=== PATIENT | female | born 1965 | race Caucasian/White ===

== ENCOUNTER 2023-05-15 08:05 | Outpatient (OUT) | payer OTHER, SELFPAY ==
[2023-05-15 08:26] LABS: Basophils Percent Auto 0.4 % (0.2-2.0); Eosinophils Absolute Auto 0.2 10^3/uL (0.0-0.7); Eosinophils Percent Auto 2.2 % (0.9-7.0); Hematocrit 40.5 % (36.0-48.0); Hemoglobin 13.7 g/dL (12.0-16.0); Immature Granulocytes Abs Auto 0.01 10^3/uL (0.00-0.03); Immature Granulocytes Pct Auto 0.1 % (0.0-0.5); Lymphocytes Absolute Auto 2.1 10^3/uL (1.2-3.8); Lymphocytes Percent Auto 29.4 % (20.5-60.0); Mean Corpuscular HGB Conc 33.8 g/dL (29.9-35.2); Mean Corpuscular Hemoglobin 32.3 pg (26.7-34.0); Mean Corpuscular Volume 95.5 fL (81.0-99.0); Mean Platelet Volume 12.1 fL (9.5-13.5); Monocytes Absolute Auto 0.5 10^3/uL (0.3-0.8); Monocytes Percent Auto 6.7 % (1.7-12.0); Neutrophils Absolute Auto 4.4 10^3/uL (1.4-6.5); Neutrophils Percent Auto 61.2 % (43.0-75.0); Platelet Count 204 10^3/uL (150-450); Red Blood Count 4.24 10^6/uL (4.20-5.40); White Blood Count 7.2 10^3/uL (4.0-11.0)
[2023-05-15 09:21] LABS: Alanine Aminotransferase 21 U/L (14-59); Albumin Globulin Ratio 0.9; Albumin Level 3.4 g/dL (3.4-5.0); Alkaline Phosphatase 64 U/L (46-116); Anion Gap 9.9; Aspartate Amino Transferase 15 U/L (15-37); BUN Creatinine Ratio 19.2; Bilirubin Total 0.4 mg/dL (0.2-1.0); Calcium 9.3 mg/dL (8.5-10.1); Chloride 103 mmol/L (98-107); Estimated GFR (African America >60 (>=60); Estimated GFR (Non-African Ame >60 (>=60); Free T3 2.58 pg/mL (2.18-3.98); Globulin 3.8 g/dL; Glucose 87 mg/dL (74-106); Potassium 3.9 mmol/L (3.5-5.1); Sodium 139 mmol/L (136-145); Thyroid Stimulating Hormone 1.308 uIU/mL (0.358-3.740); Total Protein 7.2 g/dL (6.4-8.2)
[2023-05-15 09:30] LABS: Free T4 0.81 ng/dL (0.76-1.46)
[2023-05-16 04:07] LABS: Estradiol 93.9 pg/mL (.); FSH 7.8 mIU/mL (.)
[2023-05-20 15:07] LABS: Free Testosterone(Direct) 3.8 pg/mL (0.0-4.2); Testosterone 279 ng/dL (4-50)
== END 2023-05-15 08:06 | disposition home or self-care (01) ==
LOC: LAB 08:05
PROVIDERS: PCP Internal Medicine
DX: Z79.890 Hormone replacement therapy (principal); N95.1 Menopausal and female climacteric states; E06.9 Thyroiditis, unspecified; E55.9 Vitamin D deficiency, unspecified
CPT/HCPCS: 80053; 82306; 82670; 83001; 84402; 84403; 84439; 84443; 84481; 85025

== ENCOUNTER 2023-07-19 09:27 | Outpatient (OUT) | payer OTHER, SELFPAY ==
--- NOTE | 2023-07-19 09:34 | MM_ITS ---
Patient Name: MELIA GARCIA MR#: [id number] : 1965 Exam Date: 07/19/2023 Ordering Doctor: DR. FELICITA MORALES D.O. RADIOLOGY REPORT PROCEDURE: MM TOMOSYNTHESIS SCREENING BI COMPARISON: MG MAMM SCREEN 3D SAMSON CAD, 05/10/2021. MG MAMM SCREEN 3D SAMSON CAD, 05/12/2022. INDICATIONS: Screening Calculator Name NCI Breast Cancer Risk Assessment Tool 5 Year Breast Cancer Risk 1.50% Lifetime Breast Cancer Risk 7.40% Personal Breast Cancer No Personal Ovarian Cancer No Treatments None Family Cancers Brother with prostate cancer at age 50; Mother with lung cancer at age 72; Brother with lung cancer at age 52. LOCATION: [facility] BREAST COMPOSITION: Heterogeneously dense,which may obscure small masses. FINDINGS: DIAGNOSTIC CATEGORY 2--BENIGN FINDING. NO CHANGE FROM COMPARISON. Scattered benign-appearing nodules are present. Scattered benign-appearing calcifications are present. Scattered benign-appearing lymph nodes are present. RIGHT BREAST: No significant suspicious finding. LEFT BREAST: No significant suspicious finding. RECOMMENDATIONS: ROUTINE MAMMOGRAM AND CLINICAL EVALUATION IN 12 MONTHS. PLEASE NOTE: A NORMAL MAMMOGRAM DOES NOT EXCLUDE THE POSSIBILITY OF BREAST CANCER. A CLINICALLY SUSPICIOUS PALPABLE LUMP SHOULD BE BIOPSIED. Dictated by: Hi Mckenna MD on 07/20/2023 at 08:13 Approved by: Hi Mckenna MD on 07/20/2023 at 08:15
== END 2023-07-19 09:28 | disposition home or self-care (01) ==
LOC: MAMMO 09:27
DX: Z12.31 Encounter for screening mammogram for malignant neoplasm of breast (principal); Z80.42 Family history of malignant neoplasm of prostate; Z80.1 Family history of malignant neoplasm of trachea, bronchus and lung
CPT/HCPCS: 77063; 77067

== ENCOUNTER 2024-07-28 10:16 | Outpatient (OUT) | payer OTHER, SELFPAY ==
--- NOTE | 2024-07-28 10:19 | MM_ITS ---
Patient Name: MELIA GARCIA MR#: [id number] : 1965 Exam Date: 07/28/2024 Ordering Doctor: DR. FELICITA MORALES D.O. RADIOLOGY REPORT PROCEDURE: MM TOMOSYNTHESIS SCREENING BI COMPARISON: MM TOMOSYNTHESIS SCREENING BI, 07/19/2023. MG MAMM SCREEN 3D SAMSON CAD, 05/12/2022. INDICATIONS: Screening Calculator Name NCI Breast Cancer Risk Assessment Tool 5 Year Breast Cancer Risk 1.50% Lifetime Breast Cancer Risk 7.20% Personal Breast Cancer No Personal Ovarian Cancer No Treatments None Family Cancers Brother with prostate cancer at age 50; Mother with lung cancer at age 72; Brother with lung cancer at age 52. LOCATION: [facility] BREAST COMPOSITION: The breasts are heterogeneously dense,which may obscure small masses. FINDINGS: DIAGNOSTIC CATEGORY 2--BENIGN FINDING. NO CHANGE FROM COMPARISON. Scattered benign-appearing nodules are present. Scattered benign-appearing calcifications are present. Scattered benign-appearing lymph nodes are present. RIGHT BREAST: No significant suspicious finding. LEFT BREAST: No significant suspicious finding. RECOMMENDATIONS: ROUTINE MAMMOGRAM AND CLINICAL EVALUATION IN 12 MONTHS. PLEASE NOTE: A NORMAL MAMMOGRAM DOES NOT EXCLUDE THE POSSIBILITY OF BREAST CANCER. A CLINICALLY SUSPICIOUS PALPABLE LUMP SHOULD BE BIOPSIED. Dictated by: Hi Mckenna MD on 07/28/2024 at 14:13 Approved by: Hi Mckenna MD on 07/28/2024 at 14:14
== END 2024-07-28 10:17 | disposition home or self-care (01) ==
LOC: MAMMO 10:16
DX: Z12.31 Encounter for screening mammogram for malignant neoplasm of breast (principal); Z80.1 Family history of malignant neoplasm of trachea, bronchus and lung; Z80.42 Family history of malignant neoplasm of prostate
CPT/HCPCS: 77063; 77067

== ENCOUNTER 2025-08-03 21:58 | Outpatient (REF) | payer OTHER, SELFPAY ==
--- OUTSIDE RECORDS SUMMARY | 2025-08-03 10:00 | XMS_ITS | Encounter Summary ---
Author Organization [facility] Address [address] [place] [address] Care Team Providers Care Sponge Maker Name Role Phone Unavailable Primary Care Provider Unavailabl e Reason for Visit * ReasonCommentsGynecologic Exam Encounter Details DateTypeDepartmentCare Team (Latest Contact Info)Odbstfllzjk21/29/2025 10:00 AM ESTProcedure Visit [facility] [place] [facility] [address] [place] [address] Teri Bradley, CHRISTINA [address] [place] [address] Well woman exam with routine gynecological exam; Breast cancer screening by mammogram; Osteoporosis, post-menopausal; Encounter for osteoporosis screening in asymptomatic postmenopausal patient; H/O: hysterectomy Social History Tobacco UseTypesPacks/DayYears UsedDateSmoking Tobacco: Never Assessed CommentsNoSex and Gender InformationValueDate RecordedSex Assigned at BirthNot on fileLegal HxvSnawvp55/15/2023 6:40 PM EDTGender MazxjimqNzojmr11/15/2023 6:40 PM EDTSexual OrientationNot on filedocumented as of this encounter Last Filed Vital Signs Vital SignReadingTime TakenCommentsBlood Cydckndx688/7408/03/2025 10:30 AM EST Pulse--Temperature--Respiratory Rate--Oxygen Saturation--Inhaled Oxygen Concentration--Pgygrr13.1 kg (159 lb)08/03/2025 10:30 AM ESTHeight--Body Mass Index30.04011/28/2018 12:00 PM EDTdocumented in this encounter Progress Notes * Teri Bradley NP - 08/03/2025 10:00 AM EST Reason for Appointment: Patient ID: Norma Main is a 60 y.o. female who presents for Gynecologic Exam Patient presents today for Annual Exam. MEDICATIONS No current outpatient medications ALLERGIES Allergies Allergen Reactions Nitrofurantoin Fever, Hives and Itching Other Reaction(s): Hives Nitrofurantoin Macrocrystal Other Reaction(s): Hives Penicillins Itching Other Reaction(s): Hives Sulfa Antibiotics Itching and Rash Other Reaction(s): Hives PROBLEMS Active Ambulatory Problems Diagnosis Date Noted No Active Ambulatory Problems Resolved Ambulatory Problems Diagnosis Date Noted No Resolved Ambulatory Problems No Additional Past Medical History HISTORY PAST MEDICAL HISTORY SOCIAL HISTORY No past medical history on file. Social History Tobacco Use Smoking status: Not on file Smokeless tobacco: Not on file Substance Use Topics Alcohol use: Not on file Drug use: Not on file FAMILY HISTORY No family history on file. SURGICAL HISTORY History reviewed. No pertinent surgical history. REVIEW OF SYSTEMS Review of Systems: Review of Systems Constitutional: Negative. HENT: Negative. Eyes: Negative. Respiratory: Negative. Cardiovascular: Negative. Gastrointestinal: Negative. Genitourinary: Negative. Musculoskeletal: Negative. Skin: Negative. Neurological: Negative. All other systems reviewed and are negative. Hematological: Negative. Endocrine: Negative. Allergic/Immunologic: Negative. OBJECTIVE Objective: Physical Exam Constitutional: Appearance: Normal appearance. She is well-developed. Genitourinary: Vulva normal. Breasts: Breasts are soft. Right: Normal. Left: Normal. Cardiovascular: Rate and Rhythm: Normal rate and regular rhythm. Pulmonary: Effort: Pulmonary effort is normal. Breath sounds: Normal breath sounds. Abdominal: General: Bowel sounds are normal. There is no distension. Palpations: Abdomen is soft. Tenderness: There is no abdominal tenderness. There is no guarding or rebound. Musculoskeletal: General: No swelling. Normal range of motion. Right lower leg: No edema. Left lower leg: No edema. Neurological: Mental Status: She is alert and oriented to person, place, and time. Skin: General: Skin is warm and dry. Psychiatric: Mood and Affect: Mood normal. Behavior: Behavior normal. Vitals and nursing note reviewed. Exam conducted with a basket braider present. Vitals: Estimated body mass index is 26.07 kg/m?? as calculated from the following: Height as of 11/28/18: 5' 1 . Weight as of 11/28/18: 138 lb. BP: No LMP recorded. Assessment/Plan ICD-10-CM 1. Well woman exam with routine gynecological exam Z01.419 Assessment/Plan Annual: Patient presents today for an annual exam. Patient states she is doing well and has no complaints. Pap was obtained without difficulty and patient given mammogram order to have scheduled/obtained. No orders of the defined types were placed in this encounter. Patient is to return in one year for annual unless needed otherwise. Documented by Kristine Hopper MA on behalf of: Teri Bradley NP documented in this encounter Plan of Treatment DateTypeDepartmentCare Team (Latest Contact Info)Oigefdjvqif55/30/2026 9:00 AM ESTProcedure Visit [facility] [address] [place] [address] Teri Bradley NP [address] [place] [address] NameTypePriorityAssociated DiagnosesOrder ScheduleBilateral screening mammogram ImagingRoutine Breast cancer screening by mammogram Expected: 08/03/2025 (Approximate), Expires: 10/03/2026DEXA bone densityImaging Routine Osteoporosis, post-menopausal Encounter for osteoporosis screening in asymptomatic postmenopausal patient Expected: 08/03/2025 (Approximate), Expires: 08/03/2026THIN PREP TIS PAP AND HR HPV DNAPathology and CytologyRoutine Well woman exam with routine gynecological exam Ordered: 08/03/2025documented as of this encounter Visit Diagnoses Diagnosis Well woman exam with routine gynecological exam Routine gynecological examination Breast cancer screening by mammogram Osteoporosis, post-menopausal Senile osteoporosis Encounter for osteoporosis screening in asymptomatic postmenopausal patient H/O: hysterectomy Acquired absence of both cervix and uterus documented in this encounter
--- OUTSIDE RECORDS SUMMARY | 2025-08-03 22:02 | XMS_ITS | CCD ---
Author Organization [facility] Care Team Providers Care Field Aide Name Role Phone FELICITA MORALES Admitting Unavailable FELICITA MORALES Attending Unavailable DR ADALBERTO HAIDER Primary Care Unavailable WEST, DR MANISHA Carranza Consulting Unavailable FELICITA MORALES Consulting Unavailable ALVARO BHAT Admitting Unavailable ALVARO BHAT Attending Unavailable DR ADALBERTO HAIDER Primary Care Unavailable ALVARO BHAT Consulting Unavailable Adalberto Haider DO Primary Care Provider INOCENTE MEDRANO Referring Unavailable ADALBERTO HAIDER Primary Care Unavailable Allergies Allergy ClassificationReported Allergen(s)Allergy TypeDate of OnsetReaction(s) Facility (1 source)NitrofurantoinDrug Xojbbwn36-87-0679[facility] ([facility] source)PenicillinsDrug allergy (disorder)02-24-2733[facility] (1 source)Sulfonamides (Antibiotic)Drug allergy (disorder)31-32-4125Igm[facility] (1 source)NitrofurantoinDrug Hkbvhgf09-74-9821VuhlbPxbIn[facility] (1 source)PenicillinsPropensity to adverse reactions to relb75-00-8136[facility] (1 source)SulfacetamideDrug Qczhayo45-54-1944Lqi [facility] Medications Current Medications MedicationDrug Class(es)DatesSig (Normalized)Sig (Original)calcium carbonate 500 mg oral tablet (1 source)take 1 tablet by mouth once dailycalcium carbonate (OSCAL) 500 MG TABS tablet Take 1 tablet by mouth daily Activecetirizine hydrochloride 10 mg oral tablet (1 source)Histamine-1 Receptor Antagonisttake 1 tablet by mouth once daily cetirizine (ZYRTEC) 10 MG tablet Take 1 tablet by mouth daily ActiveMultiple Vitamin (MULTIVITAMIN) TABS tablet (1 source)take 1 tablet by mouth once dailyMultiple Vitamin (MULTIVITAMIN) TABS tablet Take 1 tablet by mouth daily Activeomeprazole 20 mg delayed release oral capsule (1 source)Proton Pump Inhibitortake 1 capsule by mouth once dailyomeprazole (PRILOSEC) 20 MG delayed release capsule Take 1 capsule by mouth daily Active turmeric extract 500 mg oral capsule (1 source)take 1 capsule by mouth once dailyturmeric 500 MG CAPS Take by mouth daily Active Problems Active Problems Problem ClassificationProblemDateDocumented DateEpisodic/ChronicOther female genital disorders (1 source)History of dysplasia of cervix; Translations: [Personal history of cervical dysplasia]Onset: 399209-03-5123IdalgcojFlzfv screening for suspected conditions (not mental disorders or infectious disease) (4 sources)Encounter for screening mammogram for malignant neoplasm of breast; Translations: [ENC SCR MAMMO MALIG NEOPLASM BREAST]Onset: 91-43-0916Pvpqyzqg Residual codes; unclassified (1 source)Family history of malignant neoplasm of trachea, bronchus and lung; Translations: [FAM HX MALIG NEOPLSM TRACH BRON LNG]Onset: 66-35-5908Jwhkhxxo Residual codes; unclassified (1 source)Family history of malignant neoplasm of prostate; Translations: [FAMILY HX MALIG NEOPLASM PROSTATE]Onset: 22-21-8869Hfnldqoy Past or Other Problems Problem ClassificationProblemDateDocumented DateEpisodic/ChronicImmunizations and screening for infectious disease (4 sources)Encounter for immunization; Translations: [ENCOUNTER FOR IMMUNIZATION]Onset: 90-97-1237Nczahmyb Results Test NameValueInterpretationReference RangeFacilityHPV DNA High Riskon 29-29-2224IKN InterpNMetroHealth Cleveland Heights Medical CenterComment on above: Result Comment: This test amplifies and detects DNA of 14 high-risk HPV types associated with cervical cancer and its precursor lesions (HPV types 16,18, 31, 33, 35, 39, 45, 51, 52, 56, 58, 59, 66, and 68). Sensitivity may be affected by specimen collection methods, stage of infection, and the presence of interfering substances. Results should be interpreted in conjunction with other available laboratory and clinical data. A negative high-risk HPV result does not exclude the possibility of future cytologic HSIL or underlying CIN2-3 or cancer. This test is intended for medical purposes only and is not valid for the evaluation of suspected sexual abuse or for other forensic purposes.Performed By: #### HPVH #### [facility] [address] [place] [address] Field Instructor: Taz Lang MDHPV Type 16Not detectedNormalGrand Lake Joint Township District Memorial HospitalComment on above:Performed By: #### HPVH #### [facility] [address] Field Instructor: Taz Lang MDHPV Type 18Not detectedNoOregon Hospital for the InsaneComment on above:Performed By: #### HPVH #### [facility] [address] [place] [address] Field Instructor: Avery Flowers High Risk HPVNot detectedNoOregon Hospital for the InsaneComment on above:Performed By: #### HPVH #### [facility] [address] [place] [address] Field Instructor: Taz Lang MDHPV DNA High Riskon 59-49-6068UFF Sample.THIN PREPNormalCleveland ClinicComment on above:Performed By: #### HPVH #### [address] [address] Field Instructor: Duran Flowers.VAGINAL SPECIMENNormalCleveland ClinicComment on above:Performed By: #### HPVH #### [address] [address] Field Instructor: CHRISTOPHER Flowersytology Reporton 95-13-2015Grciemvi report Cyto stain.thin prep Doc (Cvx/Vag)(NOTE) Path Number: [id number] DIAGNOSIS Imaged ThinPrep Pap - Vaginal (1 monolayer slide): Specimen Adequacy: Satisfactory for evaluation. Descriptive Diagnosis: Negative for intraepithelial lesion or malignancy. Cytotech Screener: EY Electronically Signed Out Jessica DAMON(ASCP) 08/07/2024 Procedure/Addendum HPV Procedure Report Date Ordered: 07/21/2024 Status: Signed Out Date Complete: 07/22/2024 By: System Interface Date Reported: 07/22/2024 Sample: HPV Type 16 Result: Not Detected Ref Range: Not Detected Sample: HPV Type 18 Result: Not Detected Ref Range: Not Detected Sample: Other High Risk HPV Result: Not Detected Ref Range: Not Detected Sample: HPV Interp Result: Ref Range: This test amplifies and detects DNA of 14 high-risk HPV types associated with cervical cancer and its precursor lesions (HPV types 16,18, 31, 33, 35, 39, 45, 51, 52, 56, 58, 59, 66, and 68). Sensitivity may be affected by specimen collection methods, stage of infection, and the presence of interfering substances. Results should be interpreted in conjunction with other available laboratory and clinical data. A negative high-risk HPV result does not exclude the possibility of future cytologic HSIL or underlying CIN2-3 or cancer. This test is intended for medical purposes only and is not valid for the evaluation of suspected sexual abuse or for other forensic purposes. [place] [address] . Source of Specimen: A: Imaged ThinPrep Pap - Vaginal (1 monolayer slide) HPV Reflex?......................HPV Regardless Clinical History Hysterectomy Z01.419 Routine rn gynecology exam without abnormal findings Prior abnormal pap: history of cervical dysplasia Processing Lab: [address] [address] Interpretation performed at [address] [address] This Pap Test has been evaluated with the assistance of the ThinPrep Pap Test Imaging System. The Pap smear is a screening test primarily for squamous epithelial lesions, which is subject to both false negative and false positive results. Your patient should be reminded to consult you immediately if she experiences any suspicious signs or symptoms, regardless of her Pap smear result. GYNECOLOGIC CYTOLOGY REPORT Patient Name: MELIA GACRIA [facility] Rec: [id number] [facility] ANATOMIC PATHOLOGY [address] [place] [address]. [place], [place] [address] [facility] SAMSON CADon 19-26-5806QM MAMM SCREEN 3D SAMSON CADPatient: MELIA GARCIA Exam Date: 05/12/2022 : 1965 Gender:F Ordering : DR. FELICITA MORALES D.O. Admission #: [id number] Family : Order #: [id number] CLICK HERE TO VIEW EXAM RADIOLOGY REPORT PROCEDURE: MAMMOGRAM SCREENING 3D BILATERAL CAD COMPARISON: MG MAMM SCREEN SAMSON W CAD, 03/17/2020. MG MAMM SCREEN 3D SAMSON CAD, 05/10/2021. INDICATIONS: Screening for malignant neoplasm of breast Calculator Name NCI Breast Cancer Risk Assessment Tool 5 Year Breast Cancer Risk 1.40% Lifetime Breast Cancer Risk 7.60% Personal Breast Cancer No Personal Ovarian Cancer No Treatments None Family Cancers Brother with prostate cancer at age 50; Mother with lung cancer at age 72; Brother with lung cancer at age 52. LOCATION: [facility] BREAST COMPOSITION: Heterogeneously dense,which may obscure small masses. FINDINGS: DIAGNOSTIC CATEGORY 2--BENIGN FINDING. NO CHANGE FROM COMPARISON. Scattered benign-appearing nodules are present. Scattered benign-appearing calcifications are present. Scattered benign-appearing lymph nodes are present. RIGHT BREAST: No significant suspicious finding. LEFT BREAST: No significant suspicious finding. RECOMMENDATIONS: ROUTINE MAMMOGRAM AND CLINICAL EVALUATION IN 12 MONTHS. PLEASE NOTE: A NORMAL MAMMOGRAM DOES NOT EXCLUDE THE POSSIBILITY OF BREAST CANCER. A CLINICALLY SUSPICIOUS PALPABLE LUMP SHOULD BE BIOPSIED. Dictated by: Manisha Mckenna MD on 05/12/2022 at 14:33 Approved by: Manisha Mckenna MD on 05/12/2022 at 14:36[facility] Encounters Encounter DateEncounter TypeCare ProviderFacilityStart: 07-18-2024 End: 48-98-1795okaxbcqsmiEORGHocking Valley Community Hospitaltart: 07-18-2024 End: 71-60-4951Wvzxrbdbe for gynecological examination (general) (routine) without abnormal findingsHocking Valley Community Hospitaltart: 07-18-2024 End: 29-65-6477Dbzxqejsdl hospital visit by physicianAdalberto Haider DO Work Phone: stVZ [place] LAB DOCTORStart: 05-12-2022 End: 74-12-9820jcerqyqojbFRRSIC CROAKFacility:V5Hufqk: 07-19-2021 End: 59-63-3566hmcpferfrnUKNCNU ELI ROSSFacility:H1 Plan of Treatment DateCare ActivityDetailAuthorStart: 03-90-4068Rotouotibdh Syncytial Virus (RSV) or age 60 yrs+ (1 - 1-dose 75+ series)Respiratory Syncytial Virus (RSV) or age 60 yrs+ (1 - 1-dose 75+ series)[facility] HospitalStart: 71-46-3823SGTBX-19 Vaccine ( season)COVID-19 Vaccine ( season)[facility] HospitalStart: 07-10-7101Sfwlwpmpv vaccinationFlu vaccine (#1)[facility] HospitalStart: 22-43-2227Uiilspkqv for malignant neoplasm of breastBreast cancer screenDominion HospitalStart: 63-44-5740Xreurezh vaccine (1 of 2)Shingles vaccine (1 of 2)[facility] HospitalStart: 38-69-3402Qpqyyrstu for malignant neoplasm of colonDominion Hospital Start: 52-75-8496Mkbvl panelLipidsDominion HospitalStart: 1993 Screening for malignant neoplasm of cervixBon Green Cross HospitalStart: 11-06-4914Gfntflevt for malignant neoplasm of cervixPap smearDominion HospitalStart: 32-24-4481VVcC/Tdap/Td vaccine (1 - Tdap)DTaP/Tdap/Td vaccine (1 - Tdap)[facility] HospitalStart: 44-30-9754Ccnsyvbea C screeningHepatitis C screenDominion HospitalStart: 14-28-1764JEB screeningHIV [facility] HospitalStart: 05-57-4126Qacdedvutr ScreenDepression [facility] Payers DatePayer CategoryPayerSelect Specialty Hospital - [facility] [id number] [id number] [id number] Social History DateTypeDetailFacilityStart: 42-98-0011Gzvzuhm smoking status NHISNever smoked tobaccoDominion HospitalHistory of tobacco usePassive smokerDominion HospitalStart: 98-17-6800Uvrxawf of Social functionDominion Hospital Start: 24-09-8746Xvlkxiv use panelDominion HospitalStart: 50-65-7612Lfe assigned at birthNot on [facility] Summary Purpose Family History No Family History Records FoundNo Family History Records Found Advance Directives No Advanced Directives Records FoundNo Advanced Directives Records Found Additional Source Comments INFORMATION SOURCE (unrecogn ized section and content) DATE CREATED AUTHOR 05/16/2022 [facility] DATE CREATED AUTHOR AUTHOR'S ORGANIZ ATION 08/14/2024 [facility] Care Teams (unrecognized sec tion and content) Team MemberRelationshipSpecialtyStart DateEnd Date Adalberto Haider DO [address] [place] [address] PCP - GeneralInternal Culwavks38/12/24 FOR RECORDS PERTAINING TO PATIENTS WHO ARE OR HAVE BEEN ENROLLED IN A CHEMICAL DEPENDENCY/SUBSTANCEABUSE PROGRAM, SOME INFORMATION MAY BE OMITTED. This clinical summary was aggregated from multiple sources. Caution should be exercised in using it in the provision of clinical care. This summary normalizes information from multiple sources, and as a consequence, information in this document may materially change the coding, format and clinical context of patient data. In addition, data may be omitted in some cases. CLINICAL DECISIONS SHOULD BE BASED ON THE PRIMARY CLINICAL RECORDS. [email or web address] provides no warranty or guarantee of the accuracy or completeness of information in this document.
--- OUTSIDE RECORDS SUMMARY | 2025-08-03 22:03 | XMS_ITS | Clinical Summary ---
Author Organization [facility] Address [address] [place] [address] Care Team Providers Care Materials Technician Name Role Phone Unavailable Primary Care Provider Unavailabl e Allergies Active AllergyReactionsCriticalityNoted DateCommentsNitrofurantoinFever,Hives, Tzfvqlp2407/18/2024 Other Reaction(s): Hives Nitrofurantoin Cgdezsnygtvw74/29/2025 Other Reaction(s): Hives VjhexuuxclxFeylunj99/13/2024 Other Reaction(s): Hives Sulfa AntibioticsItching,SsxaInm3107/18/2024 Other Reaction(s): Hives Medications No known medications Encounters DateTypeDepartmentCare EthpRnjqzavxbsl24/29/2025 10:00 AM ESTProcedure Visit [facility] [place] [place] [address] Teri Bradley NP Well woman exam with routine gynecological exam; Breast cancer screening by mammogram; Osteoporosis, post-menopausal; Encounter for osteoporosis screening in asymptomatic postmenopausal patient; H/O: lqxdkcagscwo67/29/2025amboo flowsheet [facility] [address] [place] [address] Teri Bradley NP 07/27/2025Travelfrom Last 3 Months Social History Tobacco UseTypesPacks/DayYears UsedDateSmoking Tobacco: Never Assessed CommentsNoSex and Gender InformationValueDate RecordedSex Assigned at BirthNot on fileLegal RneEkpauw13/15/2023 6:40 PM EDTGender ZbdfbnmjEynecm30/15/2023 6:40 PM EDTSexual OrientationNot on file Last Filed Vital Signs Vital SignReadingTime TakenCommentsBlood Giylflvl419/7408/03/2025 10:30 AM EST Pulse--Temperature--Respiratory Rate--Oxygen Saturation--Inhaled Oxygen Concentration--Cuwfly88.1 kg (159 lb)08/03/2025 10:30 AM FHRAmxzqe584.9 cm (5' 1 )11/28/2018 12:00 PM EDTBody Mass Index30.04011/28/2018 12:00 PM EDT Plan of Treatment DateTypeDepartmentCare Team (Latest Contact Info)Wyjicdunnhn64/30/2026 9:00 AM ESTProcedure Visit [facility] [address] [place] [address] Teri Bradley, CHRISTINA [address] [place] [address] Insurance
--- OUTSIDE RECORDS SUMMARY | 2025-08-03 22:03 | XMS_ITS | Encounter Summary ---
Author Organization [facility] Address [address] [place] [address] Care Team Providers Care Expressive Art Therapist Name Role Phone Unavailable Primary Care Provider Unavailabl e Encounter Details DateTypeDepartmentCare Team (Latest Contact Info)Qaccnndfulz23/29/2025amboo flowsheet [facility] [address] [place] [address] [place] [address] Teri Bradley, PORTABLE IRRIGATION OPERATOR [address] [place] [address] Social History Tobacco UseTypesPacks/DayYears UsedDateSmoking Tobacco: Never Assessed CommentsNoSex and Gender InformationValueDate RecordedSex Assigned at BirthNot on fileLegal CedFujysm13/15/2023 6:40 PM EDTGender YjnvnuvoDfwxgu49/15/2023 6:40 PM EDTSexual OrientationNot on filedocumented as of this encounter Plan of Treatment DateTypeDepartmentCare Team (Latest Contact Info)Hziujxykeph96/30/2026 9:00 AM ESTProcedure Visit [facility] [address] [place] [address] [place] [address] Teri Bradley, PORTABLE IRRIGATION OPERATOR [address] [place] [address] [place] [address] documented as of this encounter Visit Diagnoses Not on filedocumented in this encounter
--- OUTSIDE RECORDS SUMMARY | 2025-08-03 22:03 | XMS_ITS | Encounter Summary ---
Author Organization [facility] Address [address] [place] [address] Care Team Providers Care Operations Inspector Name Role Phone Unavailable Primary Care Provider Unavailabl e Encounter Details DateTypeDepartmentCare Team (Latest Contact Info)Okiccxwzzuv93/22/2025Travel Social History Tobacco UseTypesPacks/DayYears UsedDateSmoking Tobacco: Never Assessed CommentsUnknownSex and Gender InformationValueDate RecordedSex Assigned at Not on fileLegal WcxMxgcdz31/15/2023 6:40 PM EDTGender FpolaftgEojtmq78/15/2023 6:40 PM EDTSexual OrientationNot on filedocumented as of this encounter Plan of Treatment DateTypeDepartmentCare Team (Latest Contact Info)Pjcefkjmamu23/30/2026 9:00 AM ESTProcedure Visit [facility] [address] [place] [address] Teri Bradley, CHRISTINA [address] [facility] [place] [address] documented as of this encounter Visit Diagnoses Not on filedocumented in this encounter
--- OUTSIDE RECORDS SUMMARY | 2025-08-03 22:03 | XMS_ITS | Clinical Summary ---
Author Organization [facility] Address [address], [address] [place] [address] Care Team Providers Care Enrollment Processor Name Role Phone Adalberto Young DO Primary Care Provider [phone] Allergies Active AllergyReactionsCriticalityNoted DateCommentsNitrofurantoinHives 07/18/20242103Umwlijznfya44/13/2024Sulfacetamide Jlmumz6307/18/2024 Medications MedicationSigDispense QuantityRefillsLast FilledStart DateEnd DateStatus cetirizine (ZYRTEC) 10 MG tablet Take 1 tablet by mouth dailyActive Multiple Vitamin (MULTIVITAMIN) TABS tablet Take 1 tablet by mouth dailyActive calcium carbonate (OSCAL) 500 MG TABS tablet Take 1 tablet by mouth dailyActive turmeric 500 MG CAPS Take by mouth dailyActive omeprazole (PRILOSEC) 20 MG delayed release capsule Take 1 capsule by mouth dailyActive Active Problems ProblemNoted DateDiagnosed DateHistory of cervical epuytxmmc04/13/2024 Family History Medical HistoryRelationNameCommentsLung CancerBrotherHypertensionFatherLung CancerMotherRelationNameStatusCommentsBrotherFatherMother Social History Tobacco UseTypesPacks/DayYears UsedDateSmoking Tobacco: NeverPassive Smoke Exposure: Past Tobacco Cessation:Counseling Given: Not Answered CommentsNoSex and Gender InformationValueDate RecordedSex Assigned at BirthNot on fileLegal VrmIphldw53/17/2024 9:40 AM EDTGender IdentityNot on file Sexual OrientationNot on file Last Filed Vital Signs Vital SignReadingTime TakenCommentsBlood Tdubuywy207/9307/18/2024 10:11 AM EST Jkzjw683007/18/2024 10:11 AM ESTTemperature--Respiratory Rate--Oxygen Saturation 98%07/18/2024 10:11 AM ESTInhaled Oxygen Concentration--Qzyffh41.8 kg (176 lb) 07/18/2024 10:11 AM ESTHeight--Body Mass Index-- Plan of Treatment Health MaintenanceDue DateLast DoneCommentsDepression Rkwbpl7401/08/1975HIV screen 1978Hepatitis C fijcpa2501/08/1981DTaP/Tdap/Td vaccine (1 - Tdap)1982 Jyvers1701/08/20038709Hssguirvmmg90/05/2008Colorectal Cancer Mwwhab7201/09/2008FIT/FOBT: Average risk01/09/2008Fecal-DNA (Cologuard): Average risk01/09/2008 Sigmoidoscopy/CT apietvayevtc56/05/2008Pneumococcal 50+ years Vaccine (1 of 1 - PCV)2013Shingles vaccine (1 of 2)2013reast cancer yootcd9912/27/2020 12/27/2018, 12/27/2018, 12/13/2017, Additional history existsFlu vaccine (#1) 5COVID-19 Vaccine ( - season)2025Pap smear07/18/2027 07/18/2024ervical cancer deajhg2807/18/2029HPV (without or with Pap)07/18/2029 07/18/2024espiratory Syncytial Virus (RSV) or age 60 yrs+ (1 - 1-dose 75+ series)2038Hepatitis A vaccineAged OutNo longer eligible based on patient's age to complete this topicHepatitis B vaccineAged OutNo longer eligible based on patient's age to complete this topicHib vaccineAged OutNo longer eligible based on patient's age to complete this topicMeningococcal (ACWY) vaccineAged OutNo longer eligible based on patient's age to complete this topicMeningococcal B vaccineAged OutNo longer eligible based on patient's age to complete this topicPolio vaccineAged OutNo longer eligible based on patient's age to complete this topic Procedures Procedure NamePriorityDate/TimeAssociated DiagnosisCommentsHUMAN PAPILLOMAVIRUS (HPV) DNA PROBE THIN PREP HIGH HFHZVcehbjw93/13/2024 12:00 AM EST RELOCATION SERVICES SPECIALIST LADJDWBQVegexdo91/13/2024 12:00 AM EST from Last 3 Months or Most Recently Relevant to Health Maintenance Results * Human papillomavirus (HPV) DNA probe thin prep high risk (07/18/2024 12:00 AM EST)ComponentValueRef RangeTest MethodAnalysis TimePerformed AtPathologist SignatureSpecimen Description.VAGINAL RIFKQZUS41/13/2024 12:00 AM [facility] LABORATORIESHPV Sample.THIN PREP07/18/2024 12:00 AM [facility] LABORATORIESHPV, Genotype 16Not DetectedNot Egbuakio90/13/2024 12:00 AM [facility] [employer] [facility] HPV, Genotype 18Not DetectedNot Rwqwshdv64/13/2024 12:00 AM [facility] LABORATORIESHPV, High Risk OtherNot DetectedNot Kbytlrbd97/13/2024 12:00 AM [facility] EnergyMERD[facility] LABORATORIESHPV, Cqlpneohinajds55/13/2024 12:00 AM ESTMERD[facility] LABORATORIESComment: This test amplifies and detects DNA of 14 high-risk HPV types associated with cervical cancer and its precursor lesions (HPV types 16,18, 31, 33, 35, 39, 45, 51, 52, 56, 58, 59, 66, and 68). ? Sensitivity may be affected by specimen collection methods, stage of infection, and the presence of interfering substances. Results should be interpreted in conjunction with other available laboratory and clinical data. A negative high-risk HPV result does not exclude the possibility of future cytologic HSIL or underlying CIN2-3 or cancer. ? This test is intended for medical purposes only and is not valid for the evaluation of suspected sexual abuse or for other forensic purposes. Specimen (Source)Anatomical Location / LateralityCollection Method / Volume Collection TimeReceived TimeSPECIMEN FROM CERVIX OR VAGINA / Ygggjoe7507/18/2024 Narrative Authorizing ProviderResult TypeResult StatusEsther Melo PRACTICE ADMINISTRATOR - CNPHEMATOLOGY ORDERABLESFinal ResultPerforming OrganizationAddressCity/State/ZIP CodePhone Number [facility] [address] [place] [address], [facility] [phone] * RELOCATION SERVICES SPECIALIST Cytology (07/18/2024 12:00 AM EST)ComponentValueRef RangeTest Method Analysis TimePerformed AtPathologist SignatureCytology ReportPath Number: [id number] DIAGNOSIS Imaged ThinPrep Pap - Vaginal (1 monolayer slide): Specimen Adequacy: ? Satisfactory for evaluation. Descriptive Diagnosis: ? Negative for intraepithelial lesion or malignancy. ?? Cytotech Screener: ??EY Electronically Signed Out E. Young CT(ASCP) /08/07/2024 Procedure/Addendum HPV Procedure Report ? Date Ordered: ? 07/21/2024 ? Status: Signed Out ? Date Complete: ? 07/22/2024 ? By: System Interface ? Date Reported: ? 07/22/2024 ? Sample: ??HPV Type 16 ?Result: ?? Not Detected ?Ref Range: Not Detected Sample: ??HPV Type 18 ?Result: ?? Not Detected ?Ref Range: Not Detected Sample: ??Other High Risk HPV ?Result: ?? Not Detected ?Ref Range: Not Detected Sample: ??HPV Interp ?Result: ? Ref Range: This test amplifies and detects DNA of 14 high-risk HPV types associated with cervical cancer and its precursor lesions (HPV types 16,18, 31, 33, 35, 39, 45, 51, 52, 56, 58, 59, 66, and 68). ? Sensitivity may be affected by specimen collection methods, stage of infection, and the presence of interfering substances. Results should be interpreted in conjunction with other available laboratory and clinical data. A negative high-risk HPV result does not exclude the possibility of future cytologic HSIL or underlying CIN2-3 or cancer. ? This test is intended for medical purposes only and is not valid for the evaluation of suspected sexual abuse or for other forensic purposes. Performed at [facility], [address] [place] [address] ??[phone]. ?? Source of Specimen: A: Imaged ThinPrep Pap - Vaginal (1 monolayer slide) HPV Reflex?......................HPV Regardless Clinical History Hysterectomy Z01.419 Routine rivet thrower exam without abnormal findings Prior abnormal pap: history of cervical dysplasia Processing Lab: [address] [address] Interpretation performed at [address] [address] This Pap Test has been evaluated with [...] result. GYNECOLOGIC CYTOLOGY REPORT Patient Name: MELIA [facility]IN [place] [facility] Rec: [id number] [facility] ??[facility] ANATOMIC PATHOLOGY [address] [place] [address]. ??[place], [place] [phone] bon PerBlueSpecimen (Source)Anatomical Location / LateralityCollection Method / VolumeCollection TimeReceived Time 8:26 AM EST Narrative Authorizing ProviderResult TypeResult StatusEsther Melo PRACTICE ADMINISTRATOR - VENETIAN BLIND CLEANER AND REPAIRER PATHOLOGY/CYTOLOGY ORDERABLESFinal ResultPerforming OrganizationAddress City/State/ZIP CodePhone Number [facility]OSPITALVenvy [employer] [address] [address] [phone] [facility]OSPITALPumpUp from Last 3 Months or Most Recently Relevant to Health Maintenance Insurance Care Teams Team MemberRelationshipSpecialtyStart DateEnd Date Adalberto Young DO [address] [place] [address] PCP - GeneralInternal Xqygipdu95/12/24
[2025-08-05 21:07] LABS: Age Gdln ACOG Testing Note (.); IGP, Aptima HPV, rfx 16/18,45 Note (.)
== END 2025-08-03 21:59 | disposition home or self-care (01) ==
LOC: LAB 21:58
PROVIDERS: Visit Provider Nurse Practitioner Family
DX: Z01.419 Encounter for gynecological examination (general) (routine) without abnormal findings (principal)
CPT/HCPCS: 87624; 88175